=== PATIENT | female | born 1955 | race Caucasian/White ===

== ENCOUNTER 2018-01-03 22:34 | Emergency (ER) | payer MEDICAID ==
[~2018-01-03] VITALS: Ht 157.5 cm; Wt 58.3 kg
[2018-01-03 22:55] VITALS: Ht 157.5 cm; Wt 58.3 kg
[2018-01-04 01:18] VITALS: BP 153/96
== END 2018-01-04 02:01 | disposition home or self-care (01) ==
LOC: ED 22:34
DX: I10 Essential (primary) hypertension (principal); Z88.0 Allergy status to penicillin